=== PATIENT | male | born 1955 | race African-American/Black ===

== ENCOUNTER 2018-12-15 17:05 | Inpatient (IN) | payer OTHER ==
[~2018-12-15] VITALS: Ht 182.9 cm; Wt 67.6 kg
[2018-12-15 17:05] VITALS: BP 123/91
--- NOTE | 2018-12-15 17:06 | NUR ---
PT BIBA BLS TO BED 6
[2018-12-15] MEDS ORDERED: NACL 0.9% 1,000 ML IV ONE (17:18)
[2018-12-15] MEDS ORDERED: NACL 0.9% 2,000 ML IV SCH (17:18)
[2018-12-15] MEDS ORDERED: PIPERACILLIN/TAZOBACTAM 3.375 GM in DEXT 5% MINI-BAG PLUS 50 ML IV ONE (17:20)
[2018-12-15] MEDS ORDERED: TIM.5OS OP (17:38)
[2018-12-15] MEDS ORDERED: DOCU-299 PO (17:38)
[2018-12-15] MEDS ORDERED: LACT25CA (17:38)
[2018-12-15] MEDS ORDERED: ATOR20TA PO (17:38)
--- NOTE | 2018-12-15 17:39 | NUR ---
PT BIB [facility] FROM [facility] [place] WITH C/O ALTERED MENTAL STATUS AND ABNORM LABS TODAY. ON ARRIVAL PT IS ALTER, NONVERBAL TO PAINFUL STIMULI. TACHYCARDIC. BUN 97, CREAT 2.59, WBC 28.9 PER FACILITY. BASELINE PT IS USUALLY ABLE TO COMMUNICATE WITH STAFF, UNABLE TO AMBULATE. BS 155 ON ARRIVAL. LUNGS CLEAR BL, BREATHING UNLABORED; HR EVEN AND REGULAR, BL PERIPHERAL PULSES PRESENT; BS ACTIVE X4. FLACC 0/10 PAIN AT THIS TIME; VSS; PATIENT POSITIONED FOR COMFORT; HOB ELEVATED; BEDRAILS UP X2; BED DOWN. HX---UTI, MUSCLE WEAKNESS, HYPERLIPIDEMIA, LEGAL BLINDNESS, TIA
[2018-12-15 17:51] LABS: APPEARANCE,URINE CLEAR (CLEAR); BILIRUBIN,URINE NEGATIVE (NEGATIVE); BLOOD, URINE TRACE-I (NEGATIVE); COLOR,URINE YELLOW (YELLOW); LEUKOCYTE ESTERASE ,URINE NEGATIVE (NEGATIVE); NITRITE, URINE NEGATIVE (NEGATIVE); PH,URINE 5.5 (5.0-9.0); UGLUCOSE NEGATIVE (NEGATIVE)
[2018-12-15] MEDS ORDERED: PIPERACILLIN/TAZOBACTAM 3.375 GM VIAL IV ONE (17:53)
--- NOTE | 2018-12-15 18:00 | NUR ---
PT RESTING IN BED. NO S/S OF DISTRESS NOTED. PT AAO
--- NOTE | 2018-12-15 18:15 | NUR ---
PT TAKEN TO CT AT THIS TIME.
[2018-12-15] MEDS ORDERED: NACL 0.9% 1,000 ML IV SCH (18:24)
--- NOTE | 2018-12-15 18:24 | NUR ---
PT BACK FROM CT
[2018-12-15] MEDS ORDERED: ONDANSETRON 4 MG/2 ML VIAL IVP PRN ×2 (18:25→19:15)
[2018-12-15] MEDS ORDERED: LORazepam 2 MG/ML VIAL IVP PRN ×2 (18:25→19:15)
[2018-12-15 18:33] LABS: HEMATOCRIT 47.6 % (36-52); HEMOGLOBIN 14.5 g/dL (12.0-18.0); MEAN CORPUSCULAR HEMOGLOBIN 28 pg (27-31); MEAN CORPUSCULAR HGB CONC 30 g/dL (33-37); MEAN CORPUSCULAR VOLUME 93.4 fL (80-94); PLATELET COUNT (AUTO) 298 K/uL (140-450); RED CELL DISTRIBUTION WIDTH 14.2 % (11.6-13.7)
[2018-12-15 18:36] LABS: WHITE BLOOD COUNT (AUTO) 34.7 K/uL (4.8-10.8)
[2018-12-15 18:43] LABS: ALBUMIN 3.2 g/dL (3.4-5.0); ANION GAP 17.5 (8-16); CARBON DIOXIDE 27.1 mmol/L (21-32); CREATININE 3.5 mg/dL (0.7-1.3); POTASSIUM 4.6 mmol/L (3.5-5.1); TOTAL BILIRUBIN 0.6 mg/dL (0.0-1.0)
[2018-12-15 18:52] LABS: PROTHROMBIN TIME 10.8 secs (10.8-13.4)
[2018-12-15] MEDS ORDERED: DEXTROSE 5% 1,000 ML IV ONE (18:55)
[2018-12-15] MEDS: SODIUM BICARBONATE 8.4% 50 MEQ in DEXTROSE 5% 1,000 ML IV SCH ×5 (18:55→23:11)
[2018-12-15 19:10] LABS: LYMPHOCYTES % (MANUAL) 7 % (20-46); MONOCYTES % (MANUAL) 1 % (5-12)
[2018-12-15] MEDS ORDERED: SODIUM BICARBONATE 8.4% 50 MEQ/50 ML VIAL ONE (19:15)
[2018-12-15 19:22] LABS: ACETONE, SERUM NEGATIVE (NEGATIVE)
--- NOTE | 2018-12-15 19:28 | NUR ---
Patient will be admitted to care of DR. LAYNE. Admited to [facility]. Will go to [id number]. Belongings list completed. Report to ANH HUFFMAN.
--- NOTE | 2018-12-15 19:30 | NUR ---
PT BROUGHT UP BY ALEXEI ESCORTED BY KEATON AIR GRINDER NURSE. PT TRANSFERRED TO 110BED B. SODUIM BICARB BOLUS RUNNING AT THIS TIME. PT TURNED AND CHANGED. PT AOX1. IV SITE ON RIGHD 22GUAGE INTACT AND FLUSHED PATENT. ALL FALLS PRECAUTIONS IN PLACE.
[2018-12-15 19:45] VITALS: BP 119/85
[2018-12-15 20:01] LABS: URIC ACID 13.2 mg/dL (2.6-7.2)
[2018-12-15] MEDS: NACL 0.9% 1,000 ML IV SCH (20:15)
--- NOTE | 2018-12-15 21:30 | NUR ---
PT IN BED ALL FALLS PRECAUTIONS IN PLACE. PT WILL RESPOND TO NAME AND LIGHT TOUCH. PT PULLED OUT IV SITE. WILL ATTEMPT TO REINSERT ANOTHER IV LINE.
--- NOTE | 2018-12-15 22:00 | NUR ---
ATTEMPTED IV SITE X1 UNSUCCESSFUL. WILL TRY AGAIN LATER. SENIOR FINANCIAL REPORTING ANALYST PHASICIAN PAGED REGARDING ANY NEW ORDERS.
--- NOTE | 2018-12-15 23:00 | NUR ---
ATTEMPTED IV SITE SUCCESSFUL NEW IV SITE 24G ON LEFT HAND. RECEIVED CALL BACK FRO Prashanth COVARRUBIAS MIXER PIGMENT DR. KENDRICK. NEW ORDERS NOTED FOR A SWALLOW EVALUATION, NEW DIET ORDER FOR A REGULAR DIET. ALSO NEW ORDERS FOR ZOSYN 3.375 Q 6HRS.
[2018-12-16] MEDS: SODIUM BICARBONATE 8.4% 50 MEQ in DEXTROSE 5% 1,000 ML IV SCH ×6 (00:15→05:54)
[2018-12-16 02:12] LABS: CREATINE KINASE MB 0.1 ng/mL (0-3.6)
[2018-12-16] MEDS ORDERED: PIPER/TAZO 2.25GM/D5W PREMIX 50 ML IV SCH (06:00)
[2018-12-16] MEDS ORDERED: PIPERACILLIN/TAZOBACTAM 3.375 GM VIAL IV ONE (06:05)
[2018-12-16] MEDS: NACL 0.9% 1,000 ML IV SCH (06:15)
--- NOTE | 2018-12-16 07:05 | NUR ---
REPORT GIVEN TO LAILA RN DAY SHIFT NURSE AT BEDSIDE FOR CONTINUITY OF CARE., PT INSTABLE CONDITION.
--- NOTE | 2018-12-16 07:08 | NUR ---
RECEIVED BEDSIDE REPORT FROM FERRY BOAT CAPTAIN. PT IS A/OX1, ORIENTED TO NAME. ON RA. ABLE TO FOLLOW MINIMAL COMMEND. SKIN WARM, CLEAN AND INTACT. RESPIRATION UNLABORED AT 18, REGULAR. IV ON L HAND 24G, PATENT AND CLEAN, INFUSING PER MD ORDER. SMITH IN PLACE AND DRAINING CLEAR URIN. UNABLE TO AMBULATE. SAFETY MEASURES IN PLACE. BED IN LOW POSITION, CALL LIGHT WITHIN REACH. SIDE RAILS ARE UP.
[2018-12-16 08:00] VITALS: BP 129/76
--- NOTE | 2018-12-16 08:09 | NUR ---
PATIENT HAS BEEN SCREENED AND CATEGORIZED MODERATE NUTRITION RISK. PATIENT WILL BE SEEN WITHIN 3-5 DAYS OF ADMISSION. 12/18/18SABRINA REYNOLDS RD
--- NOTE | 2018-12-16 09:05 | NUR ---
INFORMED DR BARBA AT BEDSIDE THAT PT IS UNABLE TO SWALLOW. PER DR BARBA, HE WILL CHANGE PT'S TO NPO.
--- NOTE | 2018-12-16 09:55 | NUR ---
S.T. BEDSIDE SWALLOW EVAL COMPLETED See report for details. Pt presents w/ severe oropharyngeal dysphagia c/b facial grimacing and labial droop on R side whenever presented with P.O. trial, labial spillage and absent bolus formation, severely delayed pharyngeal swallow response or absent swallow response altogether. Pt is at high risk for aspiration. Recommend: 1) Strict NPO with non-oral means of nutrition, hydration and meds. 2) Possible repeat eval in 3 days if pt's mentation improves. Pt does not present as strong rehab candidate. DC to [facility] care at this time. No further tx indicated. Time [id number]
[2018-12-16 11:07] LABS: CREATINE KINASE MB 0.4 ng/mL (0-3.6)
--- NOTE | 2018-12-16 11:15 | NUR ---
PT IS RESTING ON BED. NO SIGNS OF DISTRESS NOTED.
[2018-12-16] MEDS: PIPER/TAZO 2.25GM/D5W PREMIX 50 ML IV SCH ×2 (12:29→20:58)
[2018-12-16] MEDS ORDERED: DEXT 5% / NACL 0.45% 1,000 ML IV SCH (13:10)
[2018-12-16 13:38] LABS: ANION GAP 16.4 (8-16); CARBON DIOXIDE 29.2 mmol/L (21-32); CREATININE 2.6 mg/dL (0.7-1.3); POTASSIUM 4.6 mmol/L (3.5-5.1)
--- NOTE | 2018-12-16 13:42 | NUR ---
CALLED DR BARBA AND INFORMED ABOUT SODIUM 169, BUN 97, AND CR 2.6.
--- NOTE | 2018-12-16 14:12 | NUR ---
1200 CALLED [facility] AND SPOKE WITH SANNA IN ADMISSIONS. PT HAS BEEN A RESIDENT SINCE 08/2018 AND IS NOW IN STORE REPRESENTATIVE AND ON A 7 DAY BED HOLD. PT'S SON BISHOP BERG IS THE FIRST POINT OF CONTACT. PATIENT DOES HAVE A SPOUSE EMMY BUT THE SON IS THE ONE TO BE CONTACTED FIRST.
--- NOTE | 2018-12-16 15:35 | NUR ---
IV ON L HAND WAS INFILTRATED. D/C IV, IV CANNULA INTACT, MINIMAL BLEEDING AT IV SITE. RESTARTED IV ON R FA 22G, PATENT AND INTACT, INFUSING PER MD ORDER.
[2018-12-16 16:00] VITALS: BP 136/78
--- NOTE | 2018-12-16 17:20 | NUR ---
PT IS RESTING ON BED. NO SIGNS OF DISTRESS NOTED.
--- NOTE | 2018-12-16 19:05 | NUR ---
GAVE BEDSIDE REPORT TO SQL TECH NURSE FOR CONTINUITY OF CARE. PT IS IN STABLE CONDITION.
--- NOTE | 2018-12-16 19:30 | NUR ---
RECEIVED BEDSIDE REPORT FROM DAY SHIFT RN, PATIENT AAOX1, ON RA, IV IN RIGHT HAND INFUSING D5/1/2 NS AT 80 ML. NOTIFIED BU DAY SHIFT RN LAILA TO CALL ORTHOPHOTOGRAPHY TECHNICIAN REGARDING LABS. SMITH CATH IN PLACE, BED ALARM ON WILL CONTINUE TO MONITOR.
[2018-12-16 20:36] LABS: ANION GAP 18.6 (8-16); CREATININE 2.5 mg/dL (0.7-1.3); POTASSIUM 3.6 mmol/L (3.5-5.1)
--- NOTE | 2018-12-16 22:00 | NUR ---
CALL FROM LAB, NA [address] ABREU.
--- NOTE | 2018-12-16 22:30 | NUR ---
CALLED DR ABREU, CALL BACK FROM [facility], NOTIFIED OF NA 169 AND BUN 88, ORDERS TO D/C DEXTROSE AND 1/2 NS AND TO START DEXTROSE AT 80 ML/HR.
--- NOTE | 2018-12-16 22:45 | NUR ---
CALL FROM LAB, NA [address] ABREU. Addendum: 12/17/18 at 0037 by Amy Jesus RN WRONG TIME
[2018-12-17] VITALS: BP 136/78
--- NOTE | 2018-12-17 00:10 | NUR ---
V/S TAKEN NOTED BP 155/95 HR 105. WITHIN BASELINE WILL CONTINUE TO MONITOR Addendum: 12/17/18 at 0301 by Amy Jesus RN WRONG PATIENT DISREGARD
[2018-12-17] MEDS: DEXTROSE 5% 1,000 ML IV SCH ×3 (00:56→18:15)
--- NOTE | 2018-12-17 00:56 | NUR ---
PATIENT LOOKS AGITATED HR 105-140 AT TIMES NA [address] DR ABREU AWARE
--- NOTE | 2018-12-17 01:04 | NUR ---
HR [address] BARBA
--- NOTE | 2018-12-17 01:05 | NUR ---
HR 168
--- NOTE | 2018-12-17 01:10 | NUR ---
CALLED DR BARBA SPOKE WITH DR HURLEY, ORDERS TO PLACE ON TELE TO SEE IF TRUE PULSE RATE IS HIGH.
[2018-12-17 01:14] LABS: ANION GAP 15.9 (8-16); CARBON DIOXIDE 24.7 mmol/L (21-32); CREATININE 2.6 mg/dL (0.7-1.3); POTASSIUM 3.6 mmol/L (3.5-5.1)
--- NOTE | 2018-12-17 01:22 | NUR ---
CALLED DR BARBA CALL BACK FROM [facility], NOTIFIED OF HR ON TELE IN THE 130'S. NO NEW ORDERS RECEIVED SINCE PATIENT IS RECEIVING DEXTROSE AT 80 ML/HR. STATED HE IS NOT WORRIED ABOUT THE HR SINCE NA IS 169 AND PATIENT HAS FLUIDS.
--- NOTE | 2018-12-17 01:31 | NUR ---
PATIENT ST ON MONITOR HR 131
--- NOTE | 2018-12-17 03:00 | NUR ---
PATIENT ASLEEP HR 108
[2018-12-17 04:00] VITALS: BP 145/95
--- NOTE | 2018-12-17 04:30 | NUR ---
V/S TAKEN BP 145/95 HR 124 ON MONITOR, DUE ZOSYN GIVEN, CALL FROM LAB NA 169 BUN 85. WILL TELL CHARGE NURSE
[2018-12-17 04:42] LABS: ANION GAP 15.7 (8-16); CARBON DIOXIDE 26.3 mmol/L (21-32); CREATININE 2.5 mg/dL (0.7-1.3)
[2018-12-17] MEDS: PIPER/TAZO 2.25GM/D5W PREMIX 50 ML IV SCH ×3 (04:47→20:58)
--- NOTE | 2018-12-17 04:53 | NUR ---
CALLED DR VIDALES FOR ORDERS REGARDING NA 169
--- NOTE | 2018-12-17 04:56 | NUR ---
CALL BACK FROM DR VIDALES, NOTIFIED OF LAST 4 DRAWS SHOWING NA 169, DR STATED OKAY AND GAVE ORDERS TO INCREASE DEXTROSE TO 125 ML/HR
--- NOTE | 2018-12-17 07:20 | NUR ---
RECEIVED PT REPORT FROM ELECTRONIC GAME DEVELOPER NURSE. PT IS ASLEEP, NO S/S OF ACUTE DISTRESS NOTED. PT ON ROOM AIR, SKIN IS INTACT. IV SITE NOTED ON THE RFA, 22 G, INFUSING D5 125 ML/HR. PT CURRENTLY NPO HE WAS CHARACTERIZED HIGH ASPIRATION RISK BY SPEECH THERAPIST YESTERDAY, WILL FOLLOW UP WITH DR BARBA. PT ON FALL PRECAUTIONS. CALL LIGHT WITHIN REACH, WILL CONTINUE TO MONITOR PT.
--- NOTE | 2018-12-17 07:37 | NUR ---
ENDORSED PATIENT TO DAY SHIFT NURSE PATIENT STABLE.
[2018-12-17 08:00] VITALS: BP 138/92
[2018-12-17 08:00] LABS: HEMOGLOBIN 13.7 g/dL (12.0-18.0); MEAN CORPUSCULAR HEMOGLOBIN 29 pg (27-31); MEAN CORPUSCULAR HGB CONC 30 g/dL (33-37); MEAN CORPUSCULAR VOLUME 95.6 fL (80-94); PLATELET COUNT (AUTO) 223 K/uL (140-450); RED BLOOD CELL COUNT(AUTO) 4.81 MIL/uL (4.20-6.10); RED CELL DISTRIBUTION WIDTH 14.5 % (11.6-13.7)
--- NOTE | 2018-12-17 08:27 | NUR ---
NOTIFIED DR BARBA REGARDING HIS NPO STATUS DUE TO ASPIRATION RISK, AND CLARIFIED CODE STATUS FROM THE [facility]. PT IS FULL CODE
[2018-12-17 09:00] LABS: ALBUMIN 2.7 g/dL (3.4-5.0); ANION GAP 14.9 (8-16); CARBON DIOXIDE 25.3 mmol/L (21-32); CREATININE 2.6 mg/dL (0.7-1.3); POTASSIUM 4.2 mmol/L (3.5-5.1); TOTAL BILIRUBIN 0.5 mg/dL (0.0-1.0)
[2018-12-17 09:18] LABS: LYMPHOCYTES % (MANUAL) 8 % (20-46); MONOCYTES % (MANUAL) 3 % (5-12)
[2018-12-17 12:00] VITALS: BP 111/76
[2018-12-17 14:09] LABS: CARBON DIOXIDE 27.3 mmol/L (21-32); CREATININE 2.3 mg/dL (0.7-1.3); POTASSIUM 3.9 mmol/L (3.5-5.1)
[2018-12-17 14:11] LABS: ANION GAP 15.6 (8-16)
--- NOTE | 2018-12-17 14:12 | NUR ---
RECEIVED CRITICAL LAB CALL, PT'S SODIUM IS STILL AT 168, AND BUN IS 76. PT IS RECEIVING IV DEXTROSE 125 ML/HR, AND IS CONTINUING TO BE NPO.
[2018-12-17 16:00] VITALS: BP 117/89
[2018-12-17 16:06] LABS: CARBON DIOXIDE 25.4 mmol/L (21-32); CREATININE 2.2 mg/dL (0.7-1.3); POTASSIUM 3.4 mmol/L (3.5-5.1)
--- NOTE | 2018-12-17 16:30 | NUR ---
PT IS AWAKE IN BED, APPEARS COMFORTABLE. NO S/S OF ACUTE DISTRESS. VITAL SIGNS STABLE. SODIUM LEVEL AT THIS TIME IS 165. WILL CONTINUE TO MONITOR PT.
--- NOTE | 2018-12-17 18:20 | NUR ---
PT COMFORTABLE, NO S/S OF ACUTE DISTRESS NOTED. FALL PRECAUTIONS IN PLACE, CALL LIGHT WITHIN REACH. IV DEXTROSE INFUSING WELL. WILL CONTINUE TO MONITOR.
--- NOTE | 2018-12-17 19:25 | NUR ---
ENDORSED PT TO SAP SECURITY ARCHITECT IN STABLE CONDITION.
--- NOTE | 2018-12-17 19:27 | NUR ---
RECEIVED PATIENT AWAKE LYING ON BED WT IV INFUSING WELL. RESPIRATION EVEN AND UNLABORED. FALL PRECAUTION APPLIED.REPOSITONED AND PLACED IN COMFORTABLE POSITION. CALL LIGHT WITHIN REACH. WILL CONTINUE TO MONITOR.
[2018-12-17 20:00] VITALS: BP 112/81
--- NOTE | 2018-12-17 20:00 | NUR ---
V/S TAKEN AND RECORDED.
[2018-12-17 20:38] LABS: ANION GAP 12.5 (8-16); CARBON DIOXIDE 28.1 mmol/L (21-32); CREATININE 2.1 mg/dL (0.7-1.3); POTASSIUM 3.6 mmol/L (3.5-5.1)
--- NOTE | 2018-12-17 21:00 | NUR ---
SCHEDULE MEDICATION GIVEN TOLERATED WELL.
--- NOTE | 2018-12-17 21:05 | NUR ---
NOTIFIED ABOUT BUN AND SODIUM RESULT. INCREASE IVF TO 150 ML/HR. AND START K RIDER 1 TIME. WILL CONTINUE TO MONITOR.
[2018-12-17] MEDS ORDERED: KCL 20 MEQ/WATER INJ PREMIX 100 ML IV SCH (22:00)
[2018-12-18] VITALS: BP 129/94
--- NOTE | 2018-12-18 | NUR ---
V/S TAKEN AND RECORDED.REPOSITIONED PATIENT AND PLACED IN COMFORTABLE POSITION.NO S/S OF DISTRESS NOTED. WILL CONTINUE TO MONITOR.
[2018-12-18] MEDS: DEXTROSE 5% 1,000 ML IV SCH ×4 (01:24→21:24)
[2018-12-18 01:31] LABS: ANION GAP 13.7 (8-16); CARBON DIOXIDE 27.9 mmol/L (21-32); CREATININE 2.1 mg/dL (0.7-1.3); POTASSIUM 3.6 mmol/L (3.5-5.1)
--- NOTE | 2018-12-18 02:00 | NUR ---
SEEN PATIENT ASLEEP. NO S/S OF DISTRESS NOTED. REPOSITIONED TO HIS SIDE USING PILLOW OFF LOAD HEELS TO MAINTAIN SKIN INTEGRITY. FALL PRECAUTION APPLIED.
[2018-12-18 04:00] VITALS: BP 121/85
--- NOTE | 2018-12-18 04:30 | NUR ---
CHANGED AND CLEAN PATIENT AND REPLACE A NEW PADS AND LINEN.REPOSITIONED, ALL NEEDS ATTENDED.
[2018-12-18] MEDS: PIPER/TAZO 2.25GM/D5W PREMIX 50 ML IV SCH ×3 (05:01→21:56)
[2018-12-18 05:30] LABS: ANION GAP 11.2 (8-16); CREATININE 2.1 mg/dL (0.7-1.3); POTASSIUM 4.2 mmol/L (3.5-5.1)
--- NOTE | 2018-12-18 07:15 | NUR ---
GAVE REPORT TO AM SHIFT RN AT BEDSIDE FOR CONTINUITY OF CARE. CALL LIGHT WITHIN REACH.ALL NEEDS ATTENDED PATIENT IN STABLE CONDITION.
--- NOTE | 2018-12-18 07:25 | NUR ---
RECEIVED PT REPORT FROM TEMP RECRUITER NURSE. PT IS ASLEEP IN BED, NO S/S OF ACUTE DISTRESS NOTED AT THIS TIME, NO SOB. PT IS ON ROOM AIR, SKIN IS INTACT. PT IS APHASIC. IV SITE NOTED ON R FA 22 G, PATENT AND INTACT, INFUSING D5 150 ML/HR. FALL PRECAUTIONS IN PLACE. PT IS CONTINUING TO BE NPO. CALL LIGHT IS WITHIN REACH, WILL CONTINUE TO MONITOR PT.
[2018-12-18 07:56] VITALS: BP 113/84
[2018-12-18 07:58] LABS: HEMATOCRIT 43.2 % (36-52); HEMOGLOBIN 13.2 g/dL (12.0-18.0); MEAN CORPUSCULAR HEMOGLOBIN 29 pg (27-31); MEAN CORPUSCULAR HGB CONC 31 g/dL (33-37); MEAN CORPUSCULAR VOLUME 93.5 fL (80-94); PLATELET COUNT (AUTO) 221 K/uL (140-450); RED BLOOD CELL COUNT(AUTO) 4.62 MIL/uL (4.20-6.10); RED CELL DISTRIBUTION WIDTH 13.9 % (11.6-13.7); WHITE BLOOD COUNT (AUTO) 24.1 K/uL (4.8-10.8)
[2018-12-18 08:39] LABS: ALBUMIN 2.7 g/dL (3.4-5.0); ANION GAP 14.3 (8-16); CARBON DIOXIDE 25.8 mmol/L (21-32); CREATININE 2.1 mg/dL (0.7-1.3); POTASSIUM 4.1 mmol/L (3.5-5.1); TOTAL BILIRUBIN 0.7 mg/dL (0.0-1.0)
[2018-12-18 09:00] LABS: LYMPHOCYTES % (MANUAL) 8 % (20-46); MONOCYTES % (MANUAL) 2 % (5-12)
[2018-12-18 09:21] LABS: CARBON DIOXIDE 26.2 mmol/L (21-32); POTASSIUM 3.7 mmol/L (3.5-5.1)
[2018-12-18 09:24] LABS: ANION GAP 13.5 (8-16)
[2018-12-18 12:00] VITALS: BP 121/79
--- NOTE | 2018-12-18 13:00 | NUR ---
PT COMFORTABLE IN BED, NO S/S OF ANY DISTRESS. PT'S SODIUM IS CURRENTLY 164. IV DEXTROSE IS INFUSING WITHOUT ANY ISSUES. IV SITE IS PATENT AND INTACT. WILL CONTINUE TO MONITOR PT.
[2018-12-18 14:03] LABS: ANION GAP 15.2 (8-16); CARBON DIOXIDE 27.8 mmol/L (21-32)
--- NOTE | 2018-12-18 14:40 | NUR ---
PT HAD A SMALL BM. PT CLEANED AND REPOSITIONED IN BED. NO S/S OF ACUTE DISTRESS NOTED. WILL CONTINUE TO MONITOR PT.
[2018-12-18 16:00] VITALS: BP 115/90
[2018-12-18 16:41] LABS: ANION GAP 13.2 (8-16); CARBON DIOXIDE 28.5 mmol/L (21-32); POTASSIUM 3.7 mmol/L (3.5-5.1)
--- NOTE | 2018-12-18 19:15 | NUR ---
PT ENDORSED TO MORTGAGE PROCESSING CLERK IN STABLE CONDITION.
--- NOTE | 2018-12-18 19:20 | NUR ---
RECEIVED PATIENT AWAKE LYING ON BED WAS APHASIC. PATIENT WAS ON HIS LEFT SIDE WITH PILLOW FOR SUPPORT. RESPIRATION EVEN AND UNLABORED. IVF INFUSING WELL WITH FC DRAINING LIGHT DARLINE URINE. FALL PRECAUTION APPLIED. CALL LIGHT WITHIN REACH. WILL CONTINUE TO MONITOR.
[2018-12-18 20:00] VITALS: BP 123/94
[2018-12-18 20:38] LABS: ANION GAP 11.8 (8-16); CARBON DIOXIDE 25.7 mmol/L (21-32); CREATININE 1.8 mg/dL (0.7-1.3); POTASSIUM 3.5 mmol/L (3.5-5.1)
--- NOTE | 2018-12-18 21:00 | NUR ---
V/S TAKEN AND RECORDED. SCHEDULE MEDICATION GIVEN TOLERATED WELL. NO S/ S OF DISTRESS NOTED. ALL NEEDS ATTENDED. WILL CONTINUE TO MONITOR.
[2018-12-19] VITALS: BP 119/83
--- NOTE | 2018-12-19 00:29 | NUR ---
V/S TAKEN AND RECORDED. REPOSITIONED USING PILLOW FOR SUPPORT. NO S/ SOF DISTRESS NOTED. WILL CONTINUE TO MONITOR.
--- NOTE | 2018-12-19 02:00 | NUR ---
SEEN PATIENT ASLEEP COMFORTABLE. NO S/S OF DISTRESS. ALL NEEDS ATTENDED.
[2018-12-19] MEDS: DEXTROSE 5% 1,000 ML IV SCH ×3 (02:26→20:37)
[2018-12-19 04:00] VITALS: BP 141/80
--- NOTE | 2018-12-19 04:00 | NUR ---
V/S TAKEN.AM CARE DONE. REPOSITIONED PATIENT IN BED. NO S/S OF DISTRESS NOTED. ALL NEEDS ATTENDED.
[2018-12-19] MEDS: PIPER/TAZO 2.25GM/D5W PREMIX 50 ML IV SCH ×3 (04:54→20:27)
[2018-12-19 07:01] LABS: BASOPHILS % (AUTO) 0.2 % (0.0-2.0); EOSINOPHILS # (AUTO) 0.4 K/uL (0-0.4); EOSINOPHILS % (AUTO) 2.3 % (0.0-4.0); HEMATOCRIT 39.8 % (36-52); HEMOGLOBIN 12.2 g/dL (12.0-18.0); LYMPHOCYTES # (AUTO) 1.4 K/uL (2.0-11.5); LYMPHOCYTES % (AUTO) 8.5 % (20.5-51.1); MEAN CORPUSCULAR HEMOGLOBIN 28 pg (27-31); MEAN CORPUSCULAR HGB CONC 31 g/dL (33-37); MEAN CORPUSCULAR VOLUME 92.6 fL (80-94); MONOCYTES # (AUTO) 0.8 K/uL (0.8-1.0); MONOCYTES % (AUTO) 4.9 % (1.7-9.3); NEUTROPHILS # (AUTO) 14.2 K/uL (1.8-7.7); NEUTROPHILS % (AUTO) 84.1 % (42.2-75.2); PLATELET COUNT (AUTO) 209 K/uL (140-450); RED CELL DISTRIBUTION WIDTH 13.5 % (11.6-13.7); WHITE BLOOD COUNT (AUTO) 16.8 K/uL (4.8-10.8)
--- NOTE | 2018-12-19 07:10 | NUR ---
ENDORSEMENT GIVEN TO AM SHIFT RN AT BEDSIDE FOR CONTINUITY OF CARE. CALL LIGHT WITHIN REACH. PATIENT IN STABLE CONDITION.
--- NOTE | 2018-12-19 07:12 | NUR ---
RECEIVED BEDSIDE REPORT FROM STOCK PREPARATION SUPERVISOR NURSE SHONA. PATIENT APHASIC AND CONFUSED. PATIENT ON ROOM AIR, NO DISTRESS NOTED. SKIN INTACT. FALL RISK PROTOCOL IN PLACE. PATIENT ON TELE MONITOR AND STANDARD PRECAUTIONS IN PLACE. IV ON R FA 22 G INFUSING D5 AT 150. IV ASYMPTOMATIC INTACT AND PATENT. SMITH CATHETER IN PLACE. PATIENT INCONTINENT. BED IN LOW POSITION, SIDE RAILS X2 UP, CALL LIGHT WITHIN REACH. WILL CONTINUE TO MONITOR.
[2018-12-19 07:19] LABS: ALBUMIN 2.7 g/dL (3.4-5.0); ANION GAP 17.4 (8-16); CARBON DIOXIDE 25.1 mmol/L (21-32); CREATININE 1.7 mg/dL (0.7-1.3); POTASSIUM 3.5 mmol/L (3.5-5.1)
[2018-12-19 08:00] VITALS: BP 129/85
--- NOTE | 2018-12-19 10:45 | NUR ---
PATIENT GIVEN BED BATH. TURNED TO L SIDE. ON ROOM AIR, NO DISTRESS NOTED. WILL CONTINUE TO MONITOR.
[2018-12-19 12:00] VITALS: BP 132/90
--- NOTE | 2018-12-19 12:40 | NUR ---
PATIENT ON ROOM AIR, NO DISTRESS NOTED. NOW OFF TELE MONITOR. WILL CONTINUE TO MONITOR PATIENT.
[2018-12-19 15:11] LABS: HEPATITIS B SURFACE ANTIBODY Non Reactive (.)
[2018-12-19 16:00] VITALS: BP 108/78
--- NOTE | 2018-12-19 16:20 | NUR ---
PATIENT LAYING IN BED, ON ROOM AIR NO DISTRESS NOTED. WILL CONTINUE TO MONITOR.
--- NOTE | 2018-12-19 18:05 | NUR ---
PATIENT SLEEPING. ON ROOM AIR, NO DISTRESS NOTED. WILL CONTINUE TO MONITOR.
--- NOTE | 2018-12-19 19:15 | NUR ---
GAVE BEDSIDE REPORT TO ANH HUFFMAN. PATIENT ENDORSED IN STABLE CONDITION.
--- NOTE | 2018-12-19 19:15 | NUR ---
RECEIVED REPORT FORM TREMAINE HUFFMAN DAYSHIFT NURSE AT BEDSIDE FOR CONTINUITY OF CARE, PT IN STABLE CONDITION.
--- NOTE | 2018-12-19 20:00 | NUR ---
PT IN BED IV SITE ON R F/A 22G INTACT AND FLUSHED PATENT. PT RUNNING D5 AT 100MLS/HR. ALL FALLS PRECAUTIONS IN PLACE, NO S/S OF PAIN OR DISTRESS NOTED. V/S FOLLOWS T 97.5 P 97 R 18 B/P 125/81 02 100% ON R/A.
--- NOTE | 2018-12-19 21:30 | NUR ---
PT IN BED NO S/S OF PAIN OR DISTRESS NOTED. ZOSYN HUNG ORDERED. PT TURNED CHANGED AND REPOSITIONED. BED LOW AND ALL FALLS PRECAUTIONS IN PLACE.
--- NOTE | 2018-12-19 22:30 | NUR ---
IV FLUIDS D5 COMPLETED. NEW BAG OF IV FLUIDS D5 HUNG AND RUNNING AT 100MLS/HR. PT IN BED ALL FALLS PRECAUTIONS IN PLACE.
--- NOTE | 2018-12-20 00:30 | NUR ---
PT IN BED TURNED AND REPOSITIONED. V/S FOLLOWS T 97.4 P 88 R 18 B/P 127/85 02 99 ON ROOM AIR. NO S/S OF PAIN OR DISTRESS NOTED.
[2018-12-20 02:00] VITALS: BP 140/89
--- NOTE | 2018-12-20 03:00 | NUR ---
PT TURNED , CHANGED AND REPOSITIONED. ALL FALLS PRECAUTIONS IN PLACE.
[2018-12-20] MEDS: PIPER/TAZO 2.25GM/D5W PREMIX 50 ML IV SCH ×3 (06:10→21:48)
--- NOTE | 2018-12-20 06:11 | NUR ---
PT IN BED NO S/S OF PAIN OR DISTRESS NOTED,ORAL CARE GIVEN AND ZOSYN HUNG ORDERED. BED LOW AND AL FALLS PRECAUTIONS IN PLACE.
[2018-12-20] MEDS: DEXTROSE 5% 1,000 ML IV SCH ×2 (06:37→17:34)
--- NOTE | 2018-12-20 07:32 | NUR ---
ENDORSED CARE TO SITAL RN DAYSHIFT NURSE AT BEDSIDE FOR CONTINUITY OF CARE, PT IN STABLE CONDITION.
[2018-12-20 07:59] LABS: BASOPHILS % (AUTO) 0.1 % (0.0-2.0); EOSINOPHILS # (AUTO) 0.4 K/uL (0-0.4); EOSINOPHILS % (AUTO) 2.9 % (0.0-4.0); HEMATOCRIT 34.5 % (36-52); HEMOGLOBIN 10.8 g/dL (12.0-18.0); LYMPHOCYTES # (AUTO) 1.1 K/uL (2.0-11.5); LYMPHOCYTES % (AUTO) 8.8 % (20.5-51.1); MEAN CORPUSCULAR HEMOGLOBIN 29 pg (27-31); MEAN CORPUSCULAR HGB CONC 31 g/dL (33-37); MEAN CORPUSCULAR VOLUME 91.8 fL (80-94); MONOCYTES # (AUTO) 0.6 K/uL (0.8-1.0); MONOCYTES % (AUTO) 4.8 % (1.7-9.3); NEUTROPHILS # (AUTO) 10.8 K/uL (1.8-7.7); NEUTROPHILS % (AUTO) 83.4 % (42.2-75.2); PLATELET COUNT (AUTO) 180 K/uL (140-450); RED BLOOD CELL COUNT(AUTO) 3.76 MIL/uL (4.20-6.10); RED CELL DISTRIBUTION WIDTH 13.2 % (11.6-13.7); WHITE BLOOD COUNT (AUTO) 12.9 K/uL (4.8-10.8)
[2018-12-20 08:00] VITALS: BP 154/105
[2018-12-20 09:00] LABS: MAGNESIUM 2.2 mg/dL (1.8-2.4); PHOSPHORUS 2.4 mg/dL (2.5-4.9)
[2018-12-20 09:03] LABS: ANION GAP 14.3 (8-16); CARBON DIOXIDE 24.9 mmol/L (21-32); CREATININE 1.2 mg/dL (0.7-1.3); POTASSIUM 3.2 mmol/L (3.5-5.1)
[2018-12-20] MEDS ORDERED: KCL 20 MEQ/WATER INJ PREMIX 200 ML IV SCH (10:00)
--- NOTE | 2018-12-20 14:24 | NUR ---
ADMINISTERED MEDS TO PT ORDERED. TOLERATED WELL. ST AT BEDSIDE, DOING SWALLOW EVAL. NO SIGN OF DISTRESS NOTED. WILL CONTINUE TO MONITOR PT.
--- NOTE | 2018-12-20 15:16 | NUR ---
S.T. REPEAT BEDSIDE SWALLOW EVAL Pt presents with moderate oropharyngeal dysphagia c/b prolonged mastication, bolus holding and delayed pharyngeal swallow response as well as coughing after swallows of thin and nectar thick liquid. Pt is at risk for aspiration. Recommend: 1) Advance to pureed diet, honey thick liquids via spoon. No straws. 2) P.O. meds crushed and mixed with puree. 3) 1:1 feeder w/ aspiration precautions. No further tx indicated. DC to [facility]. Time [id number]
[2018-12-20] MEDS ORDERED: POTASSIUM PHOSPHATE 15 MM in NACL 0.9% 250 ML IV SCH (15:30)
[2018-12-20 16:00] VITALS: BP 145/92
--- NOTE | 2018-12-20 17:05 | NUR ---
12/20/18 RD INITIAL ASSESSMENT COMPLETED PLEASE REFER TO NUTRITION ASSESSMENT UNDER CARE ACTIVITY FOR ESTIMATED NUTRITIONAL NEEDS. 1. RECOMMEND SWALLOW EVALUATION 2. IF PATIENT DOES NOT PASS SWALLOW EVALUATION RECOMMEND NEPRO 1.8 @ 65 ML/HR AND 250 ML H2O FLUSH Q4H. -THIS WILL PROVIDE A VOLUME OF 1560 ML, 2808 KCAL, 126 GM OF PROTEIN, AND 2634 OF FREE WATER. IT MEET 100% OF THE ENERGY NEED, 100% OF THE PROTEIN NEED, AND 100% OF THE FLUID NEED. 3. RECOMMEND MVI BID 4. RD TO FOLLOW-UP 2-3 DAYS, HIGH RISK SABRINA REYNOLDS RD
--- NOTE | 2018-12-20 17:45 | NUR ---
CHECKED ON PT. HAD BLOOD IN HIS HAND. SCRATCHING HIS WOUND. PT IS S/P ORIF OF RT HIP , PROCEDURE DONE TODAY. CHARGE NURSE NOTIFIED. APPLIED ADHESIVE DRESSING WITH HELP OF CHARGE NURSE. PT PULLED HIS IV OUT, PULLED OUT HIS CONDOM CATHETER. PT IS AOX1, SEVERELY CONFUSED. SUTURE IS INTACT. WOUND SITE BLEEDING. DRESSING CHANGED AND PLACED THE HIP INTACT. PT HAS LEG ABDUCTOR IN PLACE. WILL CONTINUE TO MONITOR PT. Addendum: 12/20/18 at 1811 by Katheryn Lewis RN WRONG PATIENT.
--- NOTE | 2018-12-20 19:30 | NUR ---
ENDORSED PT TO PM NURSE AT BESIDE. PT IN STABLE CONDITION.
--- NOTE | 2018-12-20 19:33 | NUR ---
RECEIVED PT FROM CATY RN PT ON BED REST APHASIC IV ON LEFT FA INFUSING WELL REPOSITIONED
[2018-12-20 20:00] VITALS: BP 111/63
--- NOTE | 2018-12-20 22:00 | NUR ---
PT APHASIC NOT DISTRESS NO;RAPHAEL REPOSITIONED FOLEYCATH DRAINING WELL YELLOW URINE
[2018-12-21] VITALS: BP 111/61
--- NOTE | 2018-12-21 02:42 | NUR ---
PT SLEEPING WELL NOT DISTRESS NOTED, REPOSITIONED Q2H
[2018-12-21] MEDS: DEXTROSE 5% 1,000 ML IV SCH ×2 (05:38→18:34)
--- NOTE | 2018-12-21 05:41 | NUR ---
SPONGE BATHGIVEN LINEN CHANGED A BIG BM REPOSITIONED
--- NOTE | 2018-12-21 06:55 | NUR ---
PT REMAIN STABLE AT THIS TIME, PT WILL BE ENDORSED TO TDAY SHIFT NURSE FOR CONTINUITY OF CARE
[2018-12-21 07:02] LABS: HEMATOCRIT 37.1 % (36-52); HEMOGLOBIN 11.4 g/dL (12.0-18.0); MEAN CORPUSCULAR HEMOGLOBIN 28 pg (27-31); MEAN CORPUSCULAR HGB CONC 31 g/dL (33-37); MEAN CORPUSCULAR VOLUME 91.5 fL (80-94); PLATELET COUNT (AUTO) 170 K/uL (140-450); RED BLOOD CELL COUNT(AUTO) 4.06 MIL/uL (4.20-6.10); RED CELL DISTRIBUTION WIDTH 13.7 % (11.6-13.7); WHITE BLOOD COUNT (AUTO) 26.9 K/uL (4.8-10.8)
--- NOTE | 2018-12-21 07:23 | NUR ---
RECEIVED BEDSIDE REPORT FROM STAFF ANALYST RN FOR CONTINUITY OF CARE. APHASIC. AROUSABLE BY PAINFUL STIMULI. FLACC 0. NO S/S DISTRESS. RESPIRATIONS EVEN AND UNLABORED. HEART RHYTHM REGULAR. VITALS STABLE. ACTIVE BS IN ALL QUADRANTS. ABDOMEN SOFT AND NON-DISTENDED. SKIN INTACT. IV SITE PATENT AND ASYMPTOMATIC, INFUSING IVF PER MD ORDERS. SMITH CATH IN PLACE, DRAINING YELLOW URINE. ALL SAFETY PRECAUTIONS IN PLACE, WILL CONTINUE TO MONITOR.
[2018-12-21 08:00] VITALS: BP 109/62
[2018-12-21 08:31] LABS: PHOSPHORUS 2.6 mg/dL (2.5-4.9)
[2018-12-21 08:37] LABS: ALBUMIN 2.6 g/dL (3.4-5.0); ANION GAP 14.7 (8-16); CARBON DIOXIDE 24.2 mmol/L (21-32); CREATININE 1.4 mg/dL (0.7-1.3); POTASSIUM 3.9 mmol/L (3.5-5.1); TOTAL BILIRUBIN 0.7 mg/dL (0.0-1.0)
[2018-12-21 09:00] LABS: LYMPHOCYTES % (MANUAL) 3 % (20-46); MONOCYTES % (MANUAL) 10 % (5-12)
--- NOTE | 2018-12-21 12:01 | NUR ---
PT AWAKE AND SITTING UP IN BED. REFUSING LUNCH. NO S/S DISTRESS. FLACC 0. WILL CONTINUE TO MONITOR.
--- NOTE | 2018-12-21 15:13 | NUR ---
DOM NOTE RECEIVED ORDER TO DISCHARGE TO [facility]. FAXED ORDER AND CLINICAL PACKET TO [facility]. PER OLVIN OF [facility] PH# [phone], THE PATIENT CAN GO TO [address] RE[address]. PER [facility] [place] PH# [phone], FOR [facility] AUTH# [id number]. PER [facility] [place] PH# [phone], THE PATIENT WILL BE PICKED UP AT 1930 TIME TODAY GOING TO [facility]. HANNA HUFFMAN AWARE.
[2018-12-21 16:00] VITALS: BP 118/91
--- NOTE | 2018-12-21 16:10 | NUR ---
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 She stated patient's health care decision maker is her son Robert Enrique.
--- NOTE | 2018-12-21 16:36 | NUR ---
CALLED PERSON TO NOTIFY BISHOP BROWN JR [phone] TO NOTIFY HIM FOR PLANS TO D/C PATIENT TO [facility]. LEFT VOICEMAIL- ASKED SON TO CALL ME BACK TO DISCUSS POC AND D/C INSTRUCTIONS. Addendum: 12/21/18 at 1729 by Dona Penn Meng, RN AND TO FIND OUT RE: PNEUMOVAX HX
--- NOTE | 2018-12-21 17:29 | NUR ---
CALLED [facility] AND GAVE REPORT TO ACCEPTING RN. DISCUSSED CC, DX, HX, MEDS, IMAGING, LABS, VITALS, CONTINUED POC. ANSWERED ALL QUESTIONS AND LEFT CALLBACK NUMBER.
--- NOTE | 2018-12-21 17:50 | NUR ---
PER OLVIN FROM [facility] [place], WBC IS TOO HIGH FOR THEM TO ACCEPT PT. WILL DISCUSS WITH MORTGAGE ORIGINATOR.
--- NOTE | 2018-12-21 19:05 | NUR ---
PER LAB, THEY WILL COME COLLECT CBC NOW. WILL NOTIFY INTEGRATION LEAD.
[2018-12-21 19:35] LABS: HEMATOCRIT 35.7 % (36-52); HEMOGLOBIN 11.1 g/dL (12.0-18.0); MEAN CORPUSCULAR HEMOGLOBIN 28 pg (27-31); MEAN CORPUSCULAR HGB CONC 31 g/dL (33-37); MEAN CORPUSCULAR VOLUME 91.3 fL (80-94); PLATELET COUNT (AUTO) 177 K/uL (140-450); RED BLOOD CELL COUNT(AUTO) 3.91 MIL/uL (4.20-6.10); RED CELL DISTRIBUTION WIDTH 13.4 % (11.6-13.7); WHITE BLOOD COUNT (AUTO) 27.7 K/uL (4.8-10.8)
--- NOTE | 2018-12-21 19:41 | NUR ---
ENDORSED POC TO ENGINEERING PROGRAMMER RN. PT IN STABLE CONDITION.
--- NOTE | 2018-12-21 19:42 | NUR ---
RECEIVED REPORT FROM DAYSHIFT NURSE AT BEDSIDE FOR CONTINUITY OF CARE. PT AWAKE APHASIC. PT IV NOTED LFA D5 AT 80ML/HR. NO SOB NO S/S OF DISTRESS ON RA. BED LOWERED CALL LIGHT WITHIN REACH WILL CONTINUE TO MONITOR.
[2018-12-21 20:36] LABS: LYMPHOCYTES % (MANUAL) 2 % (20-46); MONOCYTES % (MANUAL) 1 % (5-12)
[2018-12-21] MEDS ORDERED: PIPERACILLIN/TAZOBACTAM 3.375 GM VIAL IV ONE (22:49)
[2018-12-21] MEDS: PIPER/TAZO 3.375GM/D5W PREMIX 50 ML IV SCH (23:08)
[2018-12-22] VITALS: BP 106/71
[2018-12-22] MEDS: PIPER/TAZO 3.375GM/D5W PREMIX 50 ML IV SCH ×3 (05:23→21:38)
[2018-12-22] MEDS ORDERED: PIPERACILLIN/TAZOBACTAM 3.375 GM VIAL IV ONE (05:27)
[2018-12-22] MEDS: DEXTROSE 5% 1,000 ML IV SCH ×2 (06:41→16:24)
--- NOTE | 2018-12-22 07:10 | NUR ---
RECEIVED BEDSIDE REPORT FROM DAMPER MAKER NURSE. PATIENT IS NONVERBAL. PATIENT IS BEDBOUND. FALL RISK PROTOCOL IN PLACE. PATIENT CANNOT AMBULATE. SMITH CATH IN PLACE. PATIENT IS INCONTINENT. SKIN IS INTACT. IV ON L FA 22G INFUSING 55 80. CLEAN, DRY AND INTACT. BED IN LOW POSITION. CALL LIGHT WITHIN REACH. WILL CONTINUE TO MONITOR THE PATIENT.
[2018-12-22 07:56] LABS: BASOPHILS % (AUTO) 0.2 % (0.0-2.0); EOSINOPHILS # (AUTO) 0.2 K/uL (0-0.4); EOSINOPHILS % (AUTO) 0.9 % (0.0-4.0); HEMATOCRIT 36.7 % (36-52); HEMOGLOBIN 11.3 g/dL (12.0-18.0); LYMPHOCYTES # (AUTO) 1.1 K/uL (2.0-11.5); LYMPHOCYTES % (AUTO) 5.3 % (20.5-51.1); MEAN CORPUSCULAR HEMOGLOBIN 28 pg (27-31); MEAN CORPUSCULAR HGB CONC 31 g/dL (33-37); MEAN CORPUSCULAR VOLUME 91.7 fL (80-94); MONOCYTES # (AUTO) 0.9 K/uL (0.8-1.0); MONOCYTES % (AUTO) 4.2 % (1.7-9.3); NEUTROPHILS % (AUTO) 89.4 % (42.2-75.2); PLATELET COUNT (AUTO) 188 K/uL (140-450); RED CELL DISTRIBUTION WIDTH 13.5 % (11.6-13.7); WHITE BLOOD COUNT (AUTO) 21.2 K/uL (4.8-10.8)
[2018-12-22 08:00] VITALS: BP 132/92
[2018-12-22 08:12] LABS: ANION GAP 12.6 (8-16); CARBON DIOXIDE 28.8 mmol/L (21-32); CREATININE 1.4 mg/dL (0.7-1.3); POTASSIUM 3.4 mmol/L (3.5-5.1)
--- NOTE | 2018-12-22 09:00 | NUR ---
PATIENT BEING FED BY MARKETING DEVELOPER. NO SIGNS OF DISTRESS. BED IN LOW POSITION. CALL LIGHT WITHIN REACH. WILL CONTINUE TO MONITOR THE PATIENT.
--- NOTE | 2018-12-22 11:00 | NUR ---
PATIENT SITTING IN BED. NO SIGNS OF DISTRESS. WILL CONTINUE TO MONITOR THE PATIENT.
--- NOTE | 2018-12-22 13:24 | NUR ---
ADMINISTERED MEDS. PATIENT TOLERATED WELL. WILL CONTINUE TO MONITOR
[2018-12-22] MEDS ORDERED: POTASSIUM CHLORIDE 20% 40 MEQ/15 ML UDC PO SCH (13:30)
--- NOTE | 2018-12-22 14:19 | NUR ---
PATIENT IN BED. NO SIGNS OF DISTRESS. WILL CONTINUE TO MONITOR
[2018-12-22 16:00] VITALS: BP 109/74
--- NOTE | 2018-12-22 16:00 | NUR ---
PATIENT IS SLEEPING. EASILY AROUSABLE. BED IN LOW POSITION. CALL LIGHT WITHIN REACH. WILL CONTINUE TO MONITOR THE PATIENT
--- NOTE | 2018-12-22 17:56 | NUR ---
PATIENT BEING FED BY ELECTRIC TRIPPER MACHINE OPERATOR. WILL CONTINUE TO MONITOR THE PATIENT
--- NOTE | 2018-12-22 19:10 | NUR ---
gave bedside report to warehouse supervisor 3rd shift nurse. patient endorsed in stable condition.
--- NOTE | 2018-12-22 19:11 | NUR ---
RECEIVED BEDSIDE REPORT FROM DAY SHIFT NURSE GERMAINE RN, PT STABLE, NO DISTRESS NOTED, IV TO LFA 22G INFUSING D5 @ 80ML/HR, INFUSING WELL, PT ON ROOM AIR, NO SOB, FLACC 0, INITIAL ASSESSMENT DONE, ALL SAFETY PRECAUTION MET, CALL LIGHT WITHIN REACH, WILL CONTINUE TO MONITOR.
--- NOTE | 2018-12-22 21:38 | NUR ---
DUE MEDICATION ADMINISTERED, PT TOLERATED WELL, NO DISTRESS NOTED, CALL LIGHT WITHIN REACH, WILL CONTINUE TO MONITOR.
[2018-12-23] VITALS: BP 119/82
--- NOTE | 2018-12-23 00:01 | NUR ---
CHECKED ON PT, V/S TAKEN, WNL. PT SLEEPING, NO DISTRESS NOTED, CALL LIGHT WITHIN REACH, WILL CONTINUE TO MONITOR.
--- NOTE | 2018-12-23 03:59 | NUR ---
CHECKED ON PT, PT SLEEPING, NO DISTRESS NOTED, CALL LIGHT WTIHIN REACH, WILL CONTINUE TO MONITOR.
[2018-12-23] MEDS: PIPER/TAZO 3.375GM/D5W PREMIX 50 ML IV SCH ×2 (05:24→12:41)
[2018-12-23 06:14] LABS: BASOPHILS % (AUTO) 0.2 % (0.0-2.0); EOSINOPHILS # (AUTO) 0.2 K/uL (0-0.4); EOSINOPHILS % (AUTO) 1.5 % (0.0-4.0); HEMATOCRIT 33.2 % (36-52); HEMOGLOBIN 10.4 g/dL (12.0-18.0); LYMPHOCYTES # (AUTO) 1.1 K/uL (2.0-11.5); LYMPHOCYTES % (AUTO) 7.4 % (20.5-51.1); MEAN CORPUSCULAR HEMOGLOBIN 28 pg (27-31); MEAN CORPUSCULAR HGB CONC 31 g/dL (33-37); MEAN CORPUSCULAR VOLUME 90.3 fL (80-94); MONOCYTES # (AUTO) 0.8 K/uL (0.8-1.0); MONOCYTES % (AUTO) 5.5 % (1.7-9.3); NEUTROPHILS # (AUTO) 12.4 K/uL (1.8-7.7); NEUTROPHILS % (AUTO) 85.4 % (42.2-75.2); PLATELET COUNT (AUTO) 186 K/uL (140-450); RED BLOOD CELL COUNT(AUTO) 3.68 MIL/uL (4.20-6.10); RED CELL DISTRIBUTION WIDTH 13.5 % (11.6-13.7); WHITE BLOOD COUNT (AUTO) 14.5 K/uL (4.8-10.8)
[2018-12-23 07:02] LABS: ALBUMIN 2.3 g/dL (3.4-5.0); CARBON DIOXIDE 27.3 mmol/L (21-32); CREATININE 1.2 mg/dL (0.7-1.3); POTASSIUM 3.3 mmol/L (3.5-5.1); TOTAL BILIRUBIN 0.6 mg/dL (0.0-1.0)
--- NOTE | 2018-12-23 07:21 | NUR ---
ENDORSED PT TO DAY SHIFT NURSE BENJAMÍN RN, PT STABLE, NO DISTRESS NOTED, CALL LIGHT WITHIN REACH.
--- NOTE | 2018-12-23 07:22 | NUR ---
Received report from pm nurse Dana. Pt asleep in bed, respirations even & nonlabored, FLACC 0. Call light within reach.
[2018-12-23 08:00] VITALS: BP 111/72
[2018-12-23] MEDS: DEXTROSE 5% 1,000 ML IV SCH (08:04)
--- NOTE | 2018-12-23 08:45 | NUR ---
Pt in high fowlers in bed, eating breakfast with max assist by HANDLE SANDER OPERATOR. Pt able to chew & swallow autonomously. No signs of aspiration.
--- NOTE | 2018-12-23 11:54 | NUR ---
CM NOTE NO DISCHARGE ORDER AT THIS TIME. PER [facility] [place] [phone], WHEN THE PATIENT IS READY FOR DISCHARGE TO GO BACK TO SNF AND IF WITH NO ISOLATION, THE PATIENT CAN GO TO [address] REYES. PER [facility] PH# [phone], FOR [facility] AUTH# [id number]. BENJAMÍN HUFFMAN AWARE.
[2018-12-23] MEDS ORDERED: PIPE1SOL IV (12:52)
[2018-12-23] MEDS ORDERED: POTASSIUM CHLORIDE 10 MEQ TABER PO SCH (13:00)
[2018-12-23] MEDS ORDERED: POTASSIUM CHLORIDE 20% 40 MEQ/15 ML UDC PO SCH (13:00)
--- NOTE | 2018-12-23 13:05 | NUR ---
CM NOTE FA[place]ED UPDATED CLINICAL PACKET [place] [facility] PER [facility]ST[facility] OF [facility]# [phone], THE PATIENT WILL BE PICKED UP AT 1800 TIME TODAY TO GO [place] [facility]. BENJAMÍN HUFFMAN AND MARIELA OF [facility] AWARE.
--- NOTE | 2018-12-23 13:21 | NUR ---
Indwelling haskins cath discontinued at this time. 800 ml urine present in drainage bag. No bladder distention noted. No signs of distress.
--- NOTE | 2018-12-23 14:00 | NUR ---
Spoke to Jr Robert (pt's son) on the phone & notified of discharge plan back to [facility] [place]. Son verbalized understanding & agree with plan of care.
--- NOTE | 2018-12-23 14:13 | NUR ---
Telephone report given to nurse Molly @ [facility]. Acknowledge discharge plans.
--- NOTE | 2018-12-23 15:10 | NUR ---
Pt with moderate amt yellow urine in pad. No bladder distention. Pericare provided, pads changed, pt repositioned. Pt awake, no signs of distress, FLACC 0. Call light within reach.
[2018-12-23 16:00] VITALS: BP 133/76
--- NOTE | 2018-12-23 19:30 | NUR ---
Pt [place] [facility] [place]ur[place]. Transported by [facility] with 2 MTs. Lt forearm IV saline locked, intact & asymptomatic. Pt awake, no signs of distress upon departure. All belongings with pt.
== END 2018-12-23 19:30 | DRG 720 ==
LOC: MED 17:05 → MTU 20:11
PROVIDERS: ADMIT Internal Medicine; ATTEND Internal Medicine
DX: A41.9 Sepsis, unspecified organism (principal); N17.0 Acute kidney failure with tubular necrosis; E43 Unspecified severe protein-calorie malnutrition; G93.41 Metabolic encephalopathy; E72.20 Disorder of urea cycle metabolism, unspecified; R64 Cachexia; E87.0 Hyperosmolality and hypernatremia; E87.8 Other disorders of electrolyte and fluid balance, not elsewhere classified; J18.9 Pneumonia, unspecified organism; E86.0 Dehydration; H54.8 Legal blindness, as defined in USA; E78.5 Hyperlipidemia, unspecified; E87.6 Hypokalemia; E83.39 Other disorders of phosphorus metabolism; I10 Essential (primary) hypertension; R13.10 Dysphagia, unspecified; Z68.20 Body mass index [BMI] 20.0-20.9, adult; Z86.73 Personal history of transient ischemic attack (TIA), and cerebral infarction without residual deficits; Z87.440 Personal history of urinary (tract) infections
CPT/HCPCS: 36415; 70450; 71045; 76770; 80048; 80053; 81003; 82009; 82140; 82550; 82553; 83605; 83735; 84100; 84484; 84550; 85025; 85610; 85730; 86706; 86803; 87040; 87081; 87086; 92610; 93005; 96365; 99285; J2543; J3480; J3490; J7030; J7060; Q0092